=== PATIENT | male | born 1975 ===

== ENCOUNTER 2017-09-18 14:00 | Emergency (ER) | payer OTHER ==
[2017-09-18 14:17] VITALS: BP 120/78; PULSE 84; RESP 16; TEMP 98.2; O2SAT 99
[2017-09-18] MEDS ORDERED: Iohexol 300 100 ML IJ ONE (15:59)
--- NOTE | 2017-09-18 15:59 | ED PDOC ---
HPI: Abdomen Time Seen by Provider: 09/18/17 14:35 Chief Complaint (Nursing): Abdominal Pain Chief Complaint (Provider): Abdominal pain History Per: Patient History/Exam Limitations: no limitations Onset/Duration Of Symptoms: Days (x2 weeks) Current Symptoms Are (Timing): Still Present Severity: Moderate Location Of Pain/Discomfort: LLQ Quality Of Discomfort: "Pain" Associated Symptoms: denies: Fever, Chills, Nausea, Vomiting, Diarrhea, Loss Of Appetite, Constipation Additional Complaint(s): Pasquale Bradshaw is a 42 year old male, with no significant past medical history , who presents to the emergency department for LLQ constant abdominal pain ongoing for x2 weeks. Patient reports no changes in eating or drinking, normal appetite and bowel movements. Patient states in the last 3 days the pain has radiated to rectal area and bowel movements have been painful. He has been taking Tylenol with short term relief. He saw his MD today who advised him to come to the ER for further evaluation. He denies any fever, chills, diarrhea, constipation, nausea, vomit, sick contacts or recent travel. PMD: Dr. Ospina at [facility]. Past Medical History Reviewed: Historical Data, Nursing Documentation, Vital Signs Vital Signs: Last Vital Signs Temp 98.2 F 09/18/17 14:13 Pulse 84 09/18/17 14:13 Resp 16 09/18/17 14:13 BP 120/78 09/18/17 14:13 Pulse Ox 99 09/18/17 16:22 - Medical History PMH: No Chronic Diseases - Surgical History Surgical History: No Surg Hx - Family History Family History: States: Unknown Family Hx - Social History Current smoker - smoking cessation education provided: No Alcohol: None Drugs: Denies - Home Medications Home Medications: Ambulatory Orders Medication Instructions Recorded Ciprofloxacin HCl [Cipro] 500 mg PO BID #10 tablet 03/28/16 oxyCODONE/Acetaminophen [Percocet 1 ea PO Q6 PRN #10 tab 03/28/16 5/325 mg Tab] Ibuprofen [Motrin Tab] 600 mg PO Q8 PRN #30 tab 09/18/17 Polyethylene Glycol 3350 [Miralax] 17 gm PO DAILY PRN #1 bottle 09/18/17 Saccharomyces Boulardi [Florastor] 500 mg PO BID #28 cap 09/18/17 - Allergies Allergies/Adverse Reactions: Allergies Allergy/AdvReac Type Severity Reaction Status Date / Time No Known Allergies Allergy Verified 03/28/16 09:23 Review of Systems ROS Statement: Except As Marked, All Systems Reviewed And Found Negative Constitutional: Negative for: Fever, Chills Gastrointestinal: Positive for: Abdominal Pain (LLQ that radiates to rectal area ), Rectal Pain, Other (painful bowel movements). Negative for: Nausea, Vomiting , Diarrhea, Constipation Physical Exam - Reviewed Nursing Documentation Reviewed: Yes Vital Signs Reviewed: Yes - Physical Exam Appears: Positive for: Non-toxic, In Acute Distress (moderate painful) Head Exam: Positive for: ATRAUMATIC, NORMAL INSPECTION, NORMOCEPHALIC Skin: Positive for: Normal Color, Warm, Dry Eye Exam: Positive for: Normal appearance, EOMI, PERRL Neck: Positive for: Painless ROM Cardiovascular/Chest: Positive for: Regular Rate, Rhythm. Negative for: Murmur Respiratory: Positive for: Normal Breath Sounds. Negative for: Respiratory Distress Gastrointestinal/Abdominal: Positive for: Tenderness (LLQ and suprapubic tenderness to palpation.). Negative for: Mass, Guarding, Rebound, Other ( McBurney's point and Huddleston's sign) Rectal: Negative for: Hemorrhoids, Mass, Other (no visible fissures.) Extremity: Positive for: Normal ROM. Negative for: Deformity, Swelling Neurologic/Psych: Positive for: Alert, Oriented - Laboratory Results Result Diagrams: 09/18/17 16:38 09/18/17 16:38 - ECG O2 Sat by Pulse Oximetry: 99 (RA) Pulse Ox Interpretation: Normal Medical Decision Making Medical Decision Making: Initial Impression: LLQ and rectal pain. Differential includes but not limited to colitis, diverticulitis, Crohn's disease and proctitis. Initial Plan: --Abd & Pelvis IV Contrast [CT] --CMP --Urine dipstick --CBC w/ differential --Toradol 15 mg IVP --Sodium Chloride 1,000 ml IV 1,000 ms/hr --Reevaluation Scribe Attestation: Documented by Alexandru Barajas, acting as a scribe for Susanna Pham MD Provider Scribe Attestation: All medical record entries made by the Scribe were at my direction and personally dictated by me. I have reviewed the chart and agree that the record accurately reflects my personal performance of the history, physical exam, medical decision making, and the department course for this patient. I have also personally directed, reviewed, and agree with the discharge instructions and disposition. Disposition - Clinical Impression Clinical Impression: Abdominal pain, Constipation - Disposition Referrals: [facility] [place] [Outside] ([facility] Disposition: Routine/Home Disposition Time: 18:00 Condition: STABLE Prescriptions: Ibuprofen [Motrin Tab] 600 mg PO Q8 PRN #30 tab PRN Reason: Pain, Moderate (4-7) Polyethylene Glycol 3350 [Miralax] 17 gm PO DAILY PRN #1 bottle PRN Reason: Constipation Saccharomyces Boulardi [Florastor] 500 mg PO BID #28 cap Instructions: Acute Abdomen (Belly Pain), Adult (DC), Constipation, Adult (DC) Print Language: LAO
[2017-09-18] MEDS ORDERED: Sodium Chloride 0.9% 100 ML ONE (16:00)
[2017-09-18] MEDS: Sodium Chloride 0.9% 1,000 ML IV STA (16:22)
[2017-09-18 16:43] LABS: BASO # 0.1 K/uL (0.0-0.2); BASO % 0.8 % (0.0-2.0); EOS # 0.3 K/uL (0.0-0.7); HEMOGLOBIN 15.9 g/dL (12.0-18.0); LYMPH # 3.8 K/uL (1.0-4.3); LYMPH % 40.2 % (20.0-40.0); MEAN CELL VOLUME 93.1 fl (80.0-94.0); MEAN CORPUSCULAR HEMOGLOBIN 31.1 pg (27.0-31.0); MEAN CORPUSCULAR HGB CONC 33.4 g/dL (33.0-37.0); MEAN PLATELET VOLUME 8.4 fl (7.2-11.7); MONO # 0.7 K/uL (0.0-0.8); MONO % 7.4 % (0.0-10.0); NEUT # 4.6 K/uL (1.8-7.0); NEUT % 48.6 % (50.0-75.0); NRBC % 0.2 % (0.0-0.0); RBC 5.11 Mil/uL (4.40-5.90); RED CELL DISTRIBUTION WIDTH 13.4 % (11.5-14.5); WHITE BLOOD COUNT 9.4 K/uL (4.8-10.8)
[2017-09-18 16:59] LABS: ALB/GLOB RATIO 1.2 (1.0-2.1); ALBUMIN 4.3 g/dL (3.5-5.0); ALT/SGPT 72 U/L (21-72); AST/SGOT 40 U/L (17-59); BLOOD UREA NITROGEN 21 mg/dl (9-20); CALCIUM 9.5 mg/dL (8.4-10.2); GFR AFRICAN-AMERICAN > 60; GFR NON-AFRICAN AMERICAN > 60
--- NOTE | 2017-09-18 18:43 | CT ---
PROCEDURE: CT scan abdomen pelvis dated 09/18/2017. HISTORY: Left lower quadrant and rectal pain h/o diverticulosis COMPARISON: Comparison made with prior CT scan abdomen pelvis 03/28/2016. TECHNIQUE: Contiguous axial images of the abdomen and pelvis. Oral contrast was administered. No IV contrast given. Coronal and Sagittal reformats generated. Radiation dose: Total exam DLP = This CT exam was performed using one or more of the following dose reduction techniques: Automated exposure control, adjustment of the mA and/or kV according to patient size, and/or use of iterative reconstruction technique. FINDINGS: LOWER THORAX: Heart appears borderline/mildly enlarged. No significant pericardial effusion. Few small on right infrahilar calcified lymph nodes are present suggesting prior exposure to a granulomatous disease process. Minor atelectasis both posterior lower lung zones and probably some scarring in the middle lobe. Small calcified granuloma right lateral lung base. No evidence of effusion or basilar pneumothorax. Small hiatal hernia with slight wall thickening of the distal esophagus likely due to protrusion gastric mucosa. Rule out esophagitis. Minimal changes of gynecomastia felt be present. LIVER: The liver exhibits relatively normal size measuring nearly 17 cm in CC dimension. Mild diffuse fatty hepatic infiltration. . Portal and splenic veins are opacified. No obvious parenchymal nor extra-axial mass or collection identified. GALLBLADDER AND BILE DUCTS: Gallbladder appears incompletely distended possibly due to nonfasting state which presumably in part accounts for thick-walled appearance however given the presence of cholelithiasis, the possibility of a mild cholecystitis to be excluded. . No pericholecystic fluid collections. PANCREAS: Visualized portions of the pancreas appear grossly unremarkable without masses collections or calcifications. SPLEEN: Exhibits normal size and attenuation pattern without mass collection calcification. ADRENALS: There are no adrenal lesions. KIDNEYS AND URETERS: Kidneys demonstrate symmetric nephrograms. No evidence of nephrolithiasis or hydronephrosis. BLADDER: The urinary bladder is incompletely distended which may account for minimal thick-walled appearance. Muscular hypertrophy may contribute REPRODUCTIVE: Prostate gland appears mildly enlarged measuring approximately 4.6 cm in transverse dimension. APPENDIX: Normal-appearing appendix best seen on coronal image number [id number]. No periappendiceal inflammatory changes. BOWEL: Evaluation of the bowel is limited due to the lack of oral contrast material. The stomach is disc distended with food debris liquid and air. Visualized loops of small bowel exhibit normal contour and caliber. No evidence of acute mechanical small bowel obstruction. Moderate amount of stool seen throughout the cecum ascending and transverse colon suggesting mild fecal retention/constipation. PERITONEUM: No gross free intraperitoneal air. There are no free or loculated fluid collections. Tiny fat containing umbilical hernia. LYMPH NODES: Unremarkable. No enlarged lymph nodes. VASCULATURE: No evidence of abdominal aortic or iliac artery aneurysms. BONES: Minimal multilevel degenerative spondylosis of the lower thoracic and lumbar spine. OTHER FINDINGS: None. IMPRESSION: Mild fatty hepatic infiltration. The gallbladder is incompletely distended and may be contracted due to nonfasting state however there is evidence of cholelithiasis and the possibility cholecystitis should be excluded. Findings consistent with constipation.
== END 2017-09-18 20:26 | disposition home or self-care (01) ==
LOC: H.ER 14:00
DX: K59.00 Constipation, unspecified (principal); R10.32 Left lower quadrant pain
CPT/HCPCS: 74177; 80053; 85025; 96374; 99283; J1885; J7040; Q9967